=== PATIENT | female | born 1940 | race Two or more races ===

== ENCOUNTER 2024-02-23 13:41 | Emergency (ER) | payer MEDICARE, MEDICAID ==
[~2024-02-23] VITALS: Ht 152.4 cm; Wt 56.1 kg
[2024-02-23 14:40] LABS: Basophils # (auto) 0 10 ^3/uL (0-0.2); Basophils % (auto) 0.8 % (0.0-2.0); Eosinophils # (auto) 0.1 10 ^3/uL (0-0.8); Hematocrit 41.9 % (36.0-46.0); Hemoglobin 13.9 g/dL (12.2-16.2); Lymphocytes # (auto) 1.2 10 ^3/uL (0.4-5.4); Mean Corpuscular Hemoglobin 27.1 pg (28.0-32.0); Mean Corpuscular Hgb Conc. 33.1 g/dL (32.0-36.0); Mean Corpuscular Volume 81.7 fL (80.0-100.0); Monocytes # (auto) 0.4 10 ^3/uL (0-1.3); Monocytes % (auto) 7.5 % (0.0-12.0); Neutrophils # (auto) 3.9 10 ^3/uL (1.6-8.6); Neutrophils % (auto) 67.7 % (37.0-80.0); Red Blood Cells 5.12 10^6/uL (4.0-5.20); White Blood Cell 5.7 10^3/uL (4.4-10.8)
[2024-02-23 15:05] LABS: Alanine Aminotransferase 18 U/L (7-40); Alkaline Phosphatase 75 U/L (46-116); Anion Gap 8 (5-15); Aspartate Aminotransferase 14 U/L (13-40); BUN/Creatinine Ratio 17.4 (10.0-20.0); Blood Urea Nitrogen 12 mg/dL (9-23); Carbon Dioxide 27 mmol/L (20-30); Chloride 104 mmol/L (98-107); Glucose 188 mg/dL (74-106); Potassium 4.4 mmol/L (3.5-5.1); Sodium 139 mmol/L (136-145)
[2024-02-23 15:06] LABS: Albumin 4.6 g/dL (3.2-4.8); Bilirubin, Total 0.6 mg/dL (0.2-1.0); Total Protein 7.5 g/dL (5.7-8.2)
[2024-02-23 15:17] LABS: Urine Bacteria None Seen /hpf (None Seen)
[2024-02-23 15:47] LABS: Urine Blood Negative /uL (Negative); Urine Clarity Clear (Clear); Urine Color Light-Yellow (Yellow); Urine Protein, UAD Negative (Negative); Urine Specific Gravity 1.029 (1.001-1.035); Urine Urobilinogen Normal (Negative); Urine WBC 7 /hpf (0 - 5); Urine pH 5.5 (5.0-9.0)
[2024-02-23] MEDS: ACETAMINOPHEN 325 MG TAB PO ONE (16:39)
[2024-02-23 17:19] VITALS: BP 154/63; PULSE 78; RESP 20; TEMP 98.1; O2SAT 98
== END 2024-02-23 17:21 | disposition home or self-care (01) ==
LOC: ER 13:41
DX: G44.209 Tension-type headache, unspecified, not intractable (principal); F03.90 Unspecified dementia, unspecified severity, without behavioral disturbance, psychotic disturbance, mood disturbance, and anxiety; Z79.899 Other long term (current) drug therapy
CPT/HCPCS: 36415; 70450; 80053; 81001; 82962; 84484; 85025

== ENCOUNTER 2024-03-20 13:00 | Emergency (ER) | payer MEDICARE, MEDICAID ==
[~2024-03-20] VITALS: Ht 160 cm; Wt 53.5 kg
[2024-03-20 14:47] VITALS: BP 175/66; PULSE 86; RESP 16; TEMP 98.2; O2SAT 97
[2024-03-20] MEDS ORDERED: ERY05OO OP (14:58)
[2024-03-20] MEDS ORDERED: AUG875T PO (14:58)
== END 2024-03-20 14:58 | disposition home or self-care (01) ==
LOC: ER 13:00
DX: H10.31 Unspecified acute conjunctivitis, right eye (principal); F03.90 Unspecified dementia, unspecified severity, without behavioral disturbance, psychotic disturbance, mood disturbance, and anxiety; Z98.890 Other specified postprocedural states

== ENCOUNTER 2024-07-05 22:35 | Inpatient (IN) | payer MEDICARE, MEDICAID ==
[~2024-07-05] VITALS: Ht 162.6 cm; Wt 53.6 kg
[~2024-07-05 22:35] MED LIST: AUG875T PO; ERY05OO OP
--- NOTE | 2024-07-05 23:08 | ED.PDOC ---
History of Present Illness HPI Comments 84-year-old female came to ER due to syncope. Patient has history of hypertension, diabetes and dementia. Patient accompanied by daughter gives history of the patient. States for the past few days patient has been having flu-like symptoms, with cough and congestion, and generalized weakness. Patient went to the bathroom earlier, and had a syncopal attack. They assume that blood sugar must be low, patient was given something to drink. Patient brought to the emergency room further evaluation and management. Patient was mildly hypotensive on arrival. Chief Complaint: Syncope Time Seen by MD: 23:08 Primary Care Provider: Carlos Enrique Reviewed Notes: Nurses Notes Allergies: Coded Allergies: NO KNOWN ALLERGIES (Unverified , 03/20/24) Home Meds Active Scripts Erythromycin (Erythromycin) 5 Mg/Gm Oin, 1 APPLIC OP TID for 10 Days, #5 GRAMS 0 Refills Prov:JESSY FAJARDO NP 03/20/24 Amoxicillin & Pot Clavulanate (AUGMENTIN TABLET) 875 Mg Tb, 875 MG PO BID for 7 Days, #14 TAB 0 Refills Prov:JESSY FAJARDO CLAIM MANAGER 03/20/24 Information Source: Relative Mode of Arrival: Wheelchair Severity: Moderate Timing: Hours Duration: Intermittent Prehospital treatment: None Past Medical History PAST MEDICAL HISTORY: Dementia, DM, HTN Surgical History: Denies all surgeries [employer] History: Denies all [employer] Hx Family History Family History: Reviewed,noncontributory to illness Social History Smoker: Non-Smoker Alcohol: Denies ETOH Use Drugs: Denies Drug Use Lives In: Home Constitutional: reports: fatigue, malaise, weakness; denies: chills, diaphoresis, fever, sweats, others EENTM: denies: blurred vision, double vision, ear bleeding, ear discharge, ear drainage, ear pain, ear ringing, eye pain, eye redness, hearing loss, mouth pain, mouth swelling, nasal discharge, nose bleeding, nose congestion, nose pain, photophobia, tearing, throat pain, throat swelling, voice changes, others Respiratory: denies: cough, hemoptysis, orthopnea, SOB at rest, shortness of breath, SOB with excertion, stridor, wheezing, others Cardiovascular: denies: chest pain, dizzy spells, diaphoresis, Dyspnea on exertion, edema, irregular heart beat, left arm pain, lightheadedness, palpitations, PND, syncope, others Gastrointestinal: denies: abdomen distended, abdominal pain, blood streaked bowels, constipated, diarrhea, dysphagia, difficulty swallowing, hematemesis, melena, nausea, poor appetite, poor fluid intake, rectal bleeding, rectal pain, vomiting, others Genitourinary: denies: abnormal vagina bleeding, burning, dyspareunia, dysuria, flank pain, frequency, hematuria, incontinence, pain, , vagina discharge, urgency, others Neurological: reports: fainting; denies: dizziness, headache, left sided numbness, left sided weakness, numbness, paresthesia, pre-existing deficit, right sided numbness, right sided weakness, seizure, speech problems, tingling, tremors, weakness, others Musculoskeletal: denies: back pain, gout, joint pain, joint swelling, muscle pain, muscle stiffness, neck pain, others Integumetry: reports: change in color; denies: bruises, change in hair/nails, dryness, laceration, lesions, lumps, rash, wounds, others Allergic/Immunocompromised: denies: Difficulty Healing, Frequent Infections, Hives, Itching, others Hematologic/Lymphatic: denies: anemia, blood clots, easy bleeding, easy bruising, swollen glands, others Endocrine: denies: excessive hunger, excessive sweating, excessive thirst, excessive urination, flushing, intolerance to cold, intolerance to heat, unexplained weight gain, unexplained weight loss, others Psychiatric: denies: anxiety, bipolar disorder, depression, hopeless, panic disorder, schizophrenia, sleepless, suicidal, others Unable to Obtain due to: Dementia Physical Exam General Appearance: Moderate Distress (Patient appears to be in moderate distress and poor overall health at time of evaluation. Patient looked pale.), Normal HEENT: Normal ENT Inspection, Pharynx Normal, TMs Normal Neck: Full Range of Motion, Non-Tender, Normal, Normal Inspection Respiratory: Chest Non-Tender, Lungs Clear, No Accessory Muscle Use, No Respiratory Distress, Normal Breath Sounds, Other (Unremarkable auscultation bilateral lung blandon.) Cardiovascular: No Edema, No JVD, No Murmur, No Gallop, Normal Peripheral Pulses, Regular Rate/Rhythm, Other (Unremarkable cardiac evaluation.) Breast Exam: Deferred Gastrointestinal: Non Tender, No Pulsatile Mass, Normal Bowel Sounds, Soft Genitalia: Deferred Pelvic: Deferred Rectal: Deferred Extremities: No calf tenderness, Normal capillary refill, Non-tender, No pedal edema Musculoskeletal : Apperance: Normal Neurologic: Disoriented, No Motor Deficits, No Sensory Deficits Cerebellar Function: Normal Reflexes: NOT DONE Skin: Dry, Normal Color, Warm Lymphatic: No Adenopathy Was a procedure done? Was a procedure done?: No Differential Dx Considerations may include: Anemia, electrolyte imbalance, dehydration, viral syndrome, weakness, syncope, hypoglycemia, hyperglycemia, metabolic encephalopathy X-Ray, Labs, Meds, VS Vital Signs Date Time Temp Pulse Resp B/P (MAP) Pulse Ox O2 Delivery O2 Flow Rate FiO2 07/05/24 23:14 72 07/05/24 22:55 98.9 77 16 110/50 (70) 9 Lab Test 07/06/24 00:16 07/05/24 23:10 07/05/24 22:55 Range/Units Troponin I High Sensitivity 7 7 </=34 ng/L White Blood Count 4.1 L 4.4-10.8 10^3/uL Red Blood Count 4.81 4.0-5.20 10^6/uL Hemoglobin 12.5 12.2-16.2 g/dL Hematocrit 37.6 36.0-46.0 % Mean Corpuscular Volume 78.2 L 80.0-100.0 fL Mean Corpuscular Hemoglobin 26.0 L 28.0-32.0 pg Mean Corpuscular Hemoglobin Concent 33.2 32.0-36.0 g/dL Red Cell Distribution Width 16.6 H 11.8-14.3 % Platelet Count 185 140-450 10^3/uL Mean Platelet Volume 7.9 6.9-10.8 fL Neutrophils (%) (Auto) 84.6 H 37.0-80.0 % Lymphocytes (%) (Auto) 8.0 L 10.0-50.0 % Monocytes (%) (Auto) 7.0 0.0-12.0 % Eosinophils (%) (Auto) 0.1 0.0-7.0 % Basophils (%) (Auto) 0.3 0.0-2.0 % Neutrophils # (Auto) 3.5 1.6-8.6 10 ^3/uL Lymphocytes # (Auto) 0.3 L 0.4-5.4 10 ^3/uL Monocytes # (Auto) 0.3 0-1.3 10 ^3/uL Eosinophils # (Auto) 0 0-0.8 10 ^3/uL Basophils # (Auto) 0 0-0.2 10 ^3/uL Nucleated Red Blood Cells 0.1 % Sodium Level 129 L 136-145 mmol/L Potassium Level 3.3 L 3.5-5.1 mmol/L Chloride Level 92 L 98-107 mmol/L Carbon Dioxide Level 26 20-31 mmol/L Anion Gap 11 5-15 Blood Urea Nitrogen 24 H 9-23 mg/dL Creatinine 1.07 H 0.550-1.02 mg/dL Glomerular Filtration Rate Calc 52 >90 mL/min BUN/Creatinine Ratio 22.4 H 10.0-20.0 Serum Glucose 376 H 74-106 mg/dL Lactic Acid Level 1.7 0.4-2.0 mmol/L Calcium Level 9.3 8.7-10.4 mg/dL Total Bilirubin 0.4 0.2-1.0 mg/dL Aspartate Amino Transferase (AST) 53 H 13-40 U/L Alanine Aminotransferase (ALT) 48 H 7-40 U/L Alkaline Phosphatase 70 46-116 U/L B-Type Natriuretic Peptide 17.83 0-100 pg/mL Total Protein 6.8 5.7-8.2 g/dL Albumin 4.1 3.2-4.8 g/dL Lipase 77 H 12-53 U/L POC Glucose 377 H 70-106 mg/dl X-Ray, Labs, Meds, VS Comment All studies performed in the ED were evaluated by me personally. Urine was pending at time of this note. Laboratories revealed a hypokalemic state, hyponatremia, hyperglycemic, transaminitis and elevated lipase. CT of the head revealed a low volume observation without an acute mass or intracranial process. EKG revealed a sinus rhythm with a rate of 72. 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 Patient received fluid and insulin and will be admitted for over management of her poorly controlled diabetes as well as a neurologic evaluation to assess her encephalopathy event. Time of 1ST Reevaluation: 02:04 Reevaluation 1ST: Improved Consultation: PCP Patient Education/Counseling: Diagnosis, Treatment Family Education/Counseling: Diagnosis, Treatment Departure 1 Departure Time of Disposition: 02:04 Impression: Primary Impression: Metabolic encephalopathy Additional Impressions: Hyperglycemia Hyponatremia Hypokalemia Transaminitis Elevated lipase Disposition: ADMITTED INPATIENT Condition: Fair Discharged With: Self, Relative Critical Care Note Critical Care Time?: No Stability Stability form required: No Heart Score Heart Score: Heart Score Response (Comments) Value History N/A 0 EKG N/A 0 Age N/A 0 Risk Factors N/A 0 Troponin N/A 0 Total 0 I personally scribed for MARCIA OLIVA PAC ([email or web address]) on 07/05/24 at 23:08. Electronically submitted by Tera Montgomery ([email or web address]). MARCIA OLIVA PAC Jul 05, 2024 23:08
[2024-07-05 23:25] LABS: Basophils # (auto) 0 10 ^3/uL (0-0.2); Eosinophils # (auto) 0 10 ^3/uL (0-0.8); Lymphocytes # (auto) 0.3 10 ^3/uL (0.4-5.4); Monocytes # (auto) 0.3 10 ^3/uL (0-1.3); Platelet Count (auto) 185 10^3/uL (140-450)
[2024-07-05 23:28] LABS: Basophils % (auto) 0.3 % (0.0-2.0); Eosinophils % (auto) 0.1 % (0.0-7.0); Hematocrit 37.6 % (36.0-46.0); Hemoglobin 12.5 g/dL (12.2-16.2); Mean Corpuscular Hgb Conc. 33.2 g/dL (32.0-36.0); Mean Corpuscular Volume 78.2 fL (80.0-100.0); Neutrophils # (auto) 3.5 10 ^3/uL (1.6-8.6); Neutrophils % (auto) 84.6 % (37.0-80.0); Nucleated Red Blood Cells % 0.1 %; Red Blood Cells 4.81 10^6/uL (4.0-5.20); Red Cell Distribution Width 16.6 % (11.8-14.3); White Blood Cell 4.1 10^3/uL (4.4-10.8)
[2024-07-05 23:40] LABS: Alkaline Phosphatase 70 U/L (46-116); Anion Gap 11 (5-15); BUN/Creatinine Ratio 22.4 (10.0-20.0); Calcium 9.3 mg/dL (8.7-10.4); Carbon Dioxide 26 mmol/L (20-31)
[2024-07-05 23:41] LABS: Albumin 4.1 g/dL (3.2-4.8); Bilirubin, Total 0.4 mg/dL (0.2-1.0); Total Protein 6.8 g/dL (5.7-8.2)
[2024-07-05 23:59] LABS: Alanine Aminotransferase 48 U/L (7-40); Aspartate Aminotransferase 53 U/L (13-40); Blood Urea Nitrogen 24 mg/dL (9-23); Chloride 92 mmol/L (98-107); Glucose 376 mg/dL (74-106); Lipase 77 U/L (12-53); Potassium 3.3 mmol/L (3.5-5.1); Sodium 129 mmol/L (136-145)
--- NOTE | 2024-07-06 00:57 | DVH ---
CLINICAL HISTORY: ALOC TECHNIQUE: Helical imaging carried out from skull base to vertex without intravenous contrast. This e xam was performed according to our departmental dose optimization program. Up-to-date CT equipment an d radiation dose reduction techniques are utilized as appropriate. COMPARISON: CT HEAD WITHOUT CONTRAST on DOS: 02/23/24 FINDINGS: Generalized cerebral volume loss with concordant prominence of the subarachnoid spaces and ventricles . There is minor patchy low-attenuation in the cerebral white matter consistent with nonspecific whit e matter disease. There is no midline shift or mass effect. The gonzalez white matter interfaces are maintained. The basal cisterns are patent. There is no evidence of acute intracranial hemorrhage or extra-axial fluid ila ection. Mastoid air cells are well-aerated. There are fluid levels in the bilateral maxillary and sp henoid sinuses and mild paranasal sinus mucosal thickening. IMPRESSION: 1. No acute intracranial abnormality. 2. Generalized cerebral volume loss and minor chronic microvascular ischemic change 3. Fluid levels in the bilateral maxillary and sphenoid sinuses which could reflect sinusitis in the appropriate clinical setting. Additional mild paranasal sinus mucosal thickening likely inflammatory .
--- NOTE | 2024-07-06 00:57 | DVH ---
EXAM: XY CHEST PORTABLE CLINICAL HISTORY: Shortness a breath TECHNIQUE: Single AP view of the chest WID: COMPARISON: None FINDINGS: Lines and tubes: None Chest: The heart size and pulmonary vasculature is within normal limits. Calcified plaque projects over the aortic arch. No pleural effusion, pneumothorax, or consolidation. The osseous structures are grossly intact. IMPRESSION: No acute cardiopulmonary abnormality.
[2024-07-06] MEDS: INSULIN LISPRO (HUMAN) 100 UNITS/ML ML SC ONE (02:57)
[2024-07-06] MEDS: SODIUM CHLORIDE 0.9% 1,000 ML IV ONE (02:58)
--- NOTE | 2024-07-06 03:31 | DVHHPRES ---
History of Present Illness Resident Creating Document: DANIELLE YUEN RESIDENT History of Present Illness This is a 84 years old female with past medical history of hypertension, hyperlipidemia, type 2 diabetes mellitus, dementia presented to the ED with her daughter for an evaluation of syncopal episode happened earlier today. According to the daughter and the patient had an syncopal episode in the morning today after coming back from washroom. The daughter also mentioned the patient has flu-like symptoms, dry cough, red and itchiness in bilateral eyes and smelly urine for last 1 day prior to this admission. Patient was diagnosed with dementia 3 years ago and she was not complaining of any symptoms and not able to answer any questions. The daughter denies chest pain, shortness of breath, fever or any change in bowel and bladder movement. PCP: Dr. Mendoza Past Medical History Hypertension, hyperlipidemia, type 2 diabetes mellitus, dementia Past Surgical History Surgery for kidney stone Family History None Past Social History Lives with daughter Nonsmoker, nonalcoholic and never tried any drugs. Review of Systems Review of Systems Review of system could not be assessed as patient has advanced dementia Allergies: Coded Allergies: NO KNOWN ALLERGIES (Unverified , 03/20/24) Exam Vital Signs Vital Signs Date Time Temp Pulse Resp B/P (MAP) Pulse Ox O2 Delivery O2 Flow Rate FiO2 07/06/24 03:18 98.9 72 14 113/50 (71) 95 98.9 Exam Physical examination: General Appearance: Alert, Oriented X3, Cooperative, No acute distress HEENT: Atraumatic, PERRLA, EOMI, Mucous membrane moist/pink Respiratory: Clear to auscultation, Normal air movement Cardiovascular: Regular rate, Normal S1, Normal S2, No murmurs, no chest wall tenderness Abdominal: Normal bowel sounds, Soft, No tenderness, No hepatospenomegaly, No masses Extremities: No clubbing, No cyanosis, No edema, Normal pulses, No tenderness/swelling Skin: No rashes, No breakdown, No significant lesion Neuro: Normal speech, Strength at 5/5 X4 ext, Normal tone, Sensation intact, grossly intact cranial nerves. Psych/Mental Status: Mental status NL, Mood NL, advanced dementia Labs/Xrays Labs Test 07/06/24 00:16 07/05/24 23:10 07/05/24 22:55 Range/Units Troponin I High Sensitivity 7 </=34 ng/L White Blood Count 4.1 L 4.4-10.8 10^3/uL Red Blood Count 4.81 4.0-5.20 10^6/uL Hemoglobin 12.5 12.2-16.2 g/dL Hematocrit 37.6 36.0-46.0 % Mean Corpuscular Volume 78.2 L 80.0-100.0 fL Mean Corpuscular Hemoglobin 26.0 L 28.0-32.0 pg Mean Corpuscular Hemoglobin Concent 33.2 32.0-36.0 g/dL Red Cell Distribution Width 16.6 H 11.8-14.3 % Platelet Count 185 140-450 10^3/uL Mean Platelet Volume 7.9 6.9-10.8 fL Neutrophils (%) (Auto) 84.6 H 37.0-80.0 % Lymphocytes (%) (Auto) 8.0 L 10.0-50.0 % Monocytes (%) (Auto) 7.0 0.0-12.0 % Eosinophils (%) (Auto) 0.1 0.0-7.0 % Basophils (%) (Auto) 0.3 0.0-2.0 % Neutrophils # (Auto) 3.5 1.6-8.6 10 ^3/uL Lymphocytes # (Auto) 0.3 L 0.4-5.4 10 ^3/uL Monocytes # (Auto) 0.3 0-1.3 10 ^3/uL Eosinophils # (Auto) 0 0-0.8 10 ^3/uL Basophils # (Auto) 0 0-0.2 10 ^3/uL Nucleated Red Blood Cells 0.1 % Sodium Level 129 L 136-145 mmol/L Potassium Level 3.3 L 3.5-5.1 mmol/L Chloride Level 92 L 98-107 mmol/L Carbon Dioxide Level 26 20-31 mmol/L Anion Gap 11 5-15 Blood Urea Nitrogen 24 H 9-23 mg/dL Creatinine 1.07 H 0.550-1.02 mg/dL Glomerular Filtration Rate Calc 52 >90 mL/min BUN/Creatinine Ratio 22.4 H 10.0-20.0 Serum Glucose 376 H 74-106 mg/dL Lactic Acid Level 1.7 0.4-2.0 mmol/L Calcium Level 9.3 8.7-10.4 mg/dL Total Bilirubin 0.4 0.2-1.0 mg/dL Aspartate Amino Transferase (AST) 53 H 13-40 U/L Alanine Aminotransferase (ALT) 48 H 7-40 U/L Alkaline Phosphatase 70 46-116 U/L B-Type Natriuretic Peptide 17.83 0-100 pg/mL Total Protein 6.8 5.7-8.2 g/dL Albumin 4.1 3.2-4.8 g/dL Lipase 77 H 12-53 U/L POC Glucose 377 H 70-106 mg/dl Assessment/Plan Assessment/Plan Assessment and plan: # Near syncopal episode likely due to autonomic instability - CT head without contrast revealed no acute intracranial abnormality - Ordered orthostatic vital - Ordered echo, carotid Doppler, TSH, B12, folic acid - IV normal saline at 60 mL/hour # Hyperglycemia with normal anion gap, ruled out DKA # Pseudohyponatremia due to hyperglycemia - On admission blood sugar was 376 and sodium was 129 - Corrected sodium is 133 - Patient was given 15 units insulin lispro - Started Lantus 10 units at q.a.m. and moderate sliding scale of insulin # Hypokalemia - Replenished # Elevated lipase with transaminitis, rule out pancreatitis - Ordered U/S of the whole abdomen, coagulation studies - IV normal saline at 60 mL/hour # Flu like symptoms, sinusitis - Ordered COVID, flu - CT head without contrast revealed in the bilateral maxillary and sphenoidal sinus - Amoxicillin-clavulanate 875 mg PO TID # PUD prophylaxis - 40 mg p.o. daily # DVT prophylaxis - Lovenox 40 mg sc daily Goal of care could not be able to discussed with the patient as patient has dementia Plan discussed with Dr. Alexander Plan discussed with: Patient, Other Date of Service: Jul 06, 2024 Billing Provider: ELDON ALEXANDER MD Common Visit Codes: 41007-YRBIIMX INP/OBS CARE (HIGH) Secondary Visit Codes: 53318-[id number] CARE PLAN 30 MINUTES DANIELLE YUEN RESIDENT Jul 06, 2024 03:31 ELDON ALEXANDER MD Jul 06, 2024 10:45
[2024-07-06] MEDS ORDERED: DEXTROSE (50%) 50ML SYRG IV PRN (03:45)
[2024-07-06] MEDS: SODIUM CHLORIDE 0.9% 1,000 ML IV SCH (03:45)
[2024-07-06] MEDS: POTASSIUM EFFERVESENT TAB 25 MEQ PO ONE (05:16)
[2024-07-06 06:09] LABS: Anion Gap 11 (5-15); Carbon Dioxide 29 mmol/L (20-31)
[2024-07-06 06:10] LABS: Calcium 9.6 mg/dL (8.7-10.4)
[2024-07-06 06:15] LABS: BUN/Creatinine Ratio 24.1 (10.0-20.0); Blood Urea Nitrogen 27 mg/dL (9-23); Chloride 93 mmol/L (98-107); Glucose 210 mg/dL (74-106); Potassium 2.9 mmol/L (3.5-5.1); Sodium 133 mmol/L (136-145)
[2024-07-06] MEDS: AMOXICILLIN/CLAVUL 875 MG TAB PO SCH (06:22)
[2024-07-06] MEDS: PANTOPRAZOLE 40 MG TAB PO SCH (06:22)
[2024-07-06] MEDS: INSULIN LANTUS (GLARGINE) 1 /0.01ml (100units/ml) SC SCH (06:38)
[2024-07-06] MEDS: InsuLIN REG 1unit/0.01ml Soln (100units/ml) SC SCH (06:39)
[2024-07-06 06:50] LABS: INR 0.96 (0.9-1.15); Partial Thromboplastin Time 29.9 SEC (24.5-34.5); Prothrombin Time 10.2 sec (9.3-11.8)
--- NOTE | 2024-07-06 06:56 | ECG ---
[facility] Test Date: 2024-07-05 Test Time: 23:14:58 Pat Name: CRISTAL REVELES Department: ED Room: [address] [place] [address] Gender: F [employer] Business Analyst: ARMEN : 1940 Requested By: MARCIA OLIVA Order Number: [id number] Reading MD: Kojo Joyner Measurements Intervals Trinity Rate: 72 P: 18 NV: 137 QRS: 38 QRSD: 91 T: 37 QT: 393 QTc: 431 Interpretive Statements Sinus rhythm Anteroseptal infarct, old Electronically Signed On 07-06-2024 14:49:39 PST by Kojo Joyner Please click the below link to view image of tracing.
[2024-07-06] MEDS: ACCU-CHEK COMFORT CURVE STRIP VI SCH (07:00)
[2024-07-06 07:26] VITALS: BP 113/51; PULSE 70; RESP 16; TEMP 99.3; O2SAT 95
--- NOTE | 2024-07-06 08:01 | DVH ---
INDICATION: Rule out pancreatitis TECHNIQUE: Multiple real-time sonographic images of the abdomen were obtained. COMPARISON: None FINDINGS: The liver is increased in echogenicity. The liver measures 15.6 cm. No intrahepatic biliar y ductal dilatation is noted. The gallbladder is not visualized. Common bile duct not visualized. The right kidney measures 9.9 cm. No hydronephrosis. The pancreas is not well visualized due to obscuration from bowel gas. The visualized portions of the IVC and aorta are grossly unremarkable. IMPRESSION: 1. Hepatic steatosis. 2. Gallbladder not visualized and may be surgically absent.
[2024-07-06 08:12] LABS: Urine Bacteria FEW /hpf (None Seen); Urine Blood Negative /uL (Negative); Urine Clarity Clear (Clear); Urine Color Light-Yellow (Yellow); Urine Protein, UAD Negative (Negative); Urine Specific Gravity 1.027 (1.001-1.035); Urine Squamous Epithelial Cell FEW /hpf (<5); Urine Urobilinogen Normal (Negative); Urine WBC 1 /hpf (0 - 5)
[2024-07-06 09:21] LABS: COVID19 ANTIGEN SOFIA FIA NEGATIVE (NEGATIVE)
[2024-07-06 09:22] LABS: Rapid Influenza B Negative (Negative)
[2024-07-06 09:40] LABS: Rapid Influenza A Positive (Negative)
[2024-07-06] MEDS ORDERED: ASPirin-EC 81 mg tab PO SCH (10:00)
[2024-07-06] MEDS ORDERED: MEMANTINE HCL 5 MG TAB PO SCH (10:00)
[2024-07-06] MEDS ORDERED: ENOXAPARIN SOD 40 MG/0.4 ML SYRINGE SC SCH (10:00)
[2024-07-06] MEDS ORDERED: POTASSIUM CHL 20 Meq TABLET PO ONE (14:00)
--- NOTE | 2024-07-06 14:07 | DVHPNRES ---
Progress Note Date Seen: Jul 06, 2024 Objective vital signs Vital Sign Date Time Temp Pulse Resp B/P (MAP) Pulse Ox O2 Delivery O2 Flow Rate FiO2 07/06/24 07:26 99.3 70 16 113/51 (71) 95 99.3 medications Current Medications Medications Dose Ordered Sig/Yari Route Start Time Stop Time Status Last Admin Dose Admin Sodium Chloride 1,000 ml @ 60 mls/hr [id number] IV 07/06/24 03:45 Amoxicillin/ Clavulanate Potassium 875 mg TID PO 07/06/24 06:00 07/06/24 06:22 875 MG Insulin Glargine 10 units QAM SC 07/06/24 07:00 07/06/24 06:38 10 UNITS Diagnostic Test (Pha) 1 strip ACHS 07/06/24 07:00 07/06/24 07:00 1 STRIP Insulin Human Regular HS SC 07/06/24 22:00 Insulin Human Regular AC SC 07/06/24 07:00 07/06/24 06:39 3 UNITS Dextrose 50 ml UD PRN IV 07/06/24 03:45 Aspirin 81 mg DAILY PO 07/06/24 10:00 Atorvastatin Calcium 20 mg HS PO 07/06/24 22:00 Memantine 5 mg DAILY PO 07/06/24 10:00 Enoxaparin Sodium 40 mg DAILY SC 07/06/24 10:00 Pantoprazole Sodium 40 mg DAILY@0600 PO 07/06/24 06:00 07/06/24 06:22 40 MG laboratory and microbiology Laboratory Tests 07/06/24 05:20 07/05/24 23:10 Test 07/06/24 05:20 Range/Units Serum Glucose 210 H 74-106 mg/dL Labs and/or images reviewed: Labs reviewed by me, Image(s) reviewed by me Problem List/Assessment/Plan Problem List/Assessment/Plan This is a 84 years old female with past medical history of hypertension, hyperlipidemia, type 2 diabetes mellitus, dementia presented to the ED with her daughter for an evaluation of syncopal episode happened earlier today. According to the daughter and the patient had an syncopal episode in the morning today after coming back from washroom. The daughter also mentioned the patient has flu-like symptoms, dry cough, red and itchiness in bilateral eyes and smelly urine for last 1 day prior to this admission. Patient was diagnosed with dementia 3 years ago and she was not complaining of any symptoms and not able to answer any questions. The daughter denies chest pain, shortness of breath, fever or any change in bowel and bladder movement. PCP: Dr. Mendoza Past Medical History Hypertension, hyperlipidemia, type 2 diabetes mellitus, dementia Past Surgical History Surgery for kidney stone Family History None Past Social History Lives with daughter Nonsmoker, nonalcoholic and never tried any drugs. Assessment and plan: # Near syncopal episode likely due to autonomic instability - CT head without contrast revealed no acute intracranial abnormality - Ordered orthostatic vital - Ordered echo, carotid Doppler, TSH, B12, folic acid - IV normal saline at 60 mL/hour # Hyperglycemia with normal anion gap, ruled out DKA # Pseudohyponatremia due to hyperglycemia - On admission blood sugar was 376 and sodium was 129 - Corrected sodium is 133 - Patient was given 15 units insulin lispro - Started Lantus 10 units at q.a.m. and moderate sliding scale of insulin # Hypokalemia - Replenished # Elevated lipase with transaminitis, rule out pancreatitis - Ordered U/S of the whole abdomen, coagulation studies - IV normal saline at 60 mL/hour # Flu like symptoms, sinusitis - Ordered COVID, flu - CT head without contrast revealed in the bilateral maxillary and sphenoidal sinus - Amoxicillin-clavulanate 875 mg PO TID # PUD prophylaxis - 40 mg p.o. daily # DVT prophylaxis - Lovenox 40 mg sc daily Goal of care could not be able to discussed with the patient as patient has dementia My Orders My Orders Orders - NADIR BURR Procedure Category Date Status Time Potassium Er Tablet PHA 07/06/24 Logged (Klor-Con Tablet) 14:00 NADIR BURR Jul 06, 2024 14:07
[2024-07-06] MEDS ORDERED: OSELTAMIVIR 75 MG CAP PO ONE (15:15)
--- NOTE | 2024-07-06 19:10 | DVHDSRES ---
Discharge Summary Date of Admission Resident Creating Document: DANIELLE YUEN RESIDENT Jul 06, 2024 at 03:14 Date of Discharge: Jul 06, 2024 Admitting Diagnosis Weakness, shortness of breath and bilateral lower limb weakness Labs/Diagnostic Data: Laboratory Results Test 07/06/24 06:29 07/06/24 06:15 07/06/24 05:20 07/06/24 00:16 POC Glucose 173 mg/dl (70-106) Influenza Type A Antigen Positive (Negative) Influenza Type B Antigen Negative (Negative) SARS-CoV-2 Antigen (Rapid) Negative (NEGATIVE) Prothrombin Time 10.2 sec (9.3-11.8) Prothrombin Time INR 0.96 (0.9-1.15) Activated Partial Thromboplast Time 29.9 SEC (24.5-34.5) Sodium Level 133 mmol/L (136-145) Potassium Level 2.9 mmol/L (3.5-5.1) Chloride Level 93 mmol/L (98-107) Carbon Dioxide Level 29 mmol/L (20-31) Anion Gap 11 (5-15) Blood Urea Nitrogen 27 mg/dL (9-23) Creatinine 1.12 mg/dL (0.550-1.02) Glomerular Filtration Rate Calc 49 mL/min (>90) BUN/Creatinine Ratio 24.1 (10.0-20.0) Serum Glucose 210 mg/dL (74-106) Calcium Level 9.6 mg/dL (8.7-10.4) Thyroid Stimulating Hormone (TSH) 1.61 uIU/mL (0.55-4.78) Troponin I High Sensitivity 7 ng/L (</=34) Test 07/05/24 23:10 07/05/24 23:03 White Blood Count 4.1 10^3/uL (4.4-10.8) Red Blood Count 4.81 10^6/uL (4.0-5.20) Hemoglobin 12.5 g/dL (12.2-16.2) Hematocrit 37.6 % (36.0-46.0) Mean Corpuscular Volume 78.2 fL (80.0-100.0) Mean Corpuscular Hemoglobin 26.0 pg (28.0-32.0) Mean Corpuscular Hemoglobin Concent 33.2 g/dL (32.0-36.0) Red Cell Distribution Width 16.6 % (11.8-14.3) Platelet Count 185 10^3/uL (140-450) Mean Platelet Volume 7.9 fL (6.9-10.8) Neutrophils (%) (Auto) 84.6 % (37.0-80.0) Lymphocytes (%) (Auto) 8.0 % (10.0-50.0) Monocytes (%) (Auto) 7.0 % (0.0-12.0) Eosinophils (%) (Auto) 0.1 % (0.0-7.0) Basophils (%) (Auto) 0.3 % (0.0-2.0) Neutrophils # (Auto) 3.5 10 ^3/uL (1.6-8.6) Lymphocytes # (Auto) 0.3 10 ^3/uL (0.4-5.4) Monocytes # (Auto) 0.3 10 ^3/uL (0-1.3) Eosinophils # (Auto) 0 10 ^3/uL (0-0.8) Basophils # (Auto) 0 10 ^3/uL (0-0.2) Nucleated Red Blood Cells 0.1 % Lactic Acid Level 1.7 mmol/L (0.4-2.0) Total Bilirubin 0.4 mg/dL (0.2-1.0) Aspartate Amino Transferase (AST) 53 U/L (13-40) Alanine Aminotransferase (ALT) 48 U/L (7-40) Alkaline Phosphatase 70 U/L (46-116) B-Type Natriuretic Peptide 17.83 pg/mL (0-100) Total Protein 6.8 g/dL (5.7-8.2) Albumin 4.1 g/dL (3.2-4.8) Lipase 77 U/L (12-53) Urine Color Light-yellow (Yellow) Urine Clarity Clear (Clear) Urine pH 5.0 (5.0-9.0) Urine Specific [place] 1.027 (1.001-1.035) Urine Protein Negative (Negative) Urine Ketones 1+ (Negative) Urine Blood Negative /uL (Negative) Urine Nitrite Negative (Negative) Urine Bilirubin Negative (Negative) Urine Urobilinogen Normal mg/dL (Negative) Urine Leukocyte Esterase Negative /uL (Negative) Urine RBC 1 /hpf (0 - 4) Urine WBC 1 /hpf (0 - 5) Urine Squamous Epithelial Cells Few /hpf (<5) Urine Bacteria Few /hpf (None Seen) Urine Glucose 4+ mg/dL (Normal) Other Laboratory Tests 07/06/24 05:20 07/05/24 23:10 Brief Hx & Hospital Course: Hospitalization summary/ Assessment: An 84-year-old female with a history of hypertension, hyperlipidemia, type 2 diabetes mellitus, and dementia presented to the ED with her daughter after a syncopal episode earlier today. The daughter reported flu-like symptoms, dry cough, red and itchy eyes, and smelly urine for the past day. The patient, diagnosed with dementia three years ago, was unable to answer questions or complain of symptoms. The daughter denies chest pain, shortness of breath, fever, or changes in bowel and bladder movements. The patient lives with her daughter, is a nonsmoker, nonalcoholic, and has never used drugs. in-hospital patient was found to have autonomic instability, intravascular volume depletion, hypokalemia, transaminitis, influenza type a but overall hemodynamically stable. Overnight patient remained room air, vitals stable, afebrile without any acute distress. Before patient can be evaluated and physical examination can be done patient left AMA With daughter. Medical conditions treated in hospital: # Metabolic encephalopathy, resolved. # Near syncopal episode likely due to autonomic imbalance: CT head negative, ulcerative vital echo, carotid Doppler TSH B12 folic acid pending. Workup pending, continue IV normal saline 60 minimal # Hyperglycemia with normal anion gap, ruled out DKA : Corrected with subcutaneous insulin # Pseudohyponatremia due to hyperglycemia: Improved # Hypokalemia, persistent with 2.9: Oral replenishment and ordered # Elevated lipase with transaminitis # possibility of pancreatitis yet not ruled out # influenza type A positive: Patient started on Tamiflu 75 mg b.i.d. # Known type 2 diabetes mellitus # known dementia on donepezil 10 mg at bedtime, memantine 5 mg daily # insomnia/anxiety: Trazodone 50 mg at bedtime # essential hypertension: Amlodipine 5 mg daily # vitamin-D deficiency: On daily 2000 units of oral supplement # dyslipidemia: Atorvastatin 20 mg daily Follow up: Please follow up with the primary care physician within 1-2 weeks of discharge. Emergency plan in case patient becomes clinically more sick should visit nearby ED/ urgent care soon as possible. Risk and benefit was explained to the daughter/caregiver by the medical team prior to leaving the medical facility. Patient care and plan discussed with Dr. Cook Discharge discussion needed 37 minutes of detailed clinical work. Operations or Procedures [place] [id number] Ph: [phone] DIAGNOSTIC IMAGING Diagnostic Imaging Report : [id number] Signed PATIENT: CRISTAL GRIFFITHS ACCT: [id number] UNIT: [id number] : 1940 LOC: TELE ROOM / BED: [facility] / A AGE / SEX: 84 / F ADM STATUS: ADM IN SERVICE 0349 ORDERING PHYSICIAN: DANIELLE YUEN RESIDENT PROCEDURE(s): ABDL - ABDOMEN LIMITED REASON: Rule out pancreatitis ORDER NUMBER(s): [id number], ACCESSION NUMBER(s): [id number] INDICATION: Rule out pancreatitis TECHNIQUE: Multiple real-time sonographic images of the abdomen were obtained. COMPARISON: None FINDINGS: The liver is increased in echogenicity. The liver measures 15.6 cm. No intrahepatic biliary ductal dilatation is noted. The gallbladder is not visualized. Common bile duct not visualized. The right kidney measures 9.9 cm. No hydronephrosis. The pancreas is not well visualized due to obscuration from bowel gas. The visualized portions of the IVC and aorta are grossly unremarkable. IMPRESSION: 1. Hepatic steatosis. 2. Gallbladder not visualized and may be surgically absent. ATED BY: LAUREN ELDRIDGE MD DICTATED DATE/TIME: 07/06/24757 SIGNED BY: LAUREN ELDRIDGE MD SIGNED DATE/TIME: 07/06/24757 CC: [place] [id number] Ph: [phone] DIAGNOSTIC IMAGING Diagnostic Imaging Report : [id number] Signed PATIENT: CRISTAL GRIFFITHS ACCT: [id number] UNIT: [id number] : 1940 LOC: ER ROOM / BED: / AGE / SEX: 84 / F ADM STATUS: REG ER SERVICE 1357 ORDERING PHYSICIAN: MARCIA OLIVA PAC PROCEDURE(s): HWOCT - HEAD WITHOUT CONTRAST REASON: ALOC ORDER NUMBER(s): [id number], ACCESSION NUMBER(s): [id number] CLINICAL HISTORY: ALOC TECHNIQUE: Helical imaging carried out from skull base to vertex without intravenous contrast. This exam was performed according to our departmental dose optimization program. Up-to-date CT equipment and radiation dose reduction techniques are utilized as appropriate. COMPARISON: CT HEAD WITHOUT CONTRAST on DOS: 02/23/24 FINDINGS: Generalized cerebral volume loss with concordant prominence of the subarachnoid spaces and ventricles. There is minor patchy low-attenuation in the cerebral white matter consistent with nonspecific white matter disease. There is no midline shift or mass effect. The gonzalez white matter interfaces are maintained. The basal cisterns are patent. There is no evidence of acute intracranial hemorrhage or extra-axial fluid collection. Mastoid air cells are well-aerated. There are fluid levels in the bilateral maxillary and sphenoid sinuses and mild paranasal sinus mucosal thickening. IMPRESSION: 1. No acute intracranial abnormality. 2. Generalized cerebral volume loss and minor chronic microvascular ischemic change 3. Fluid levels in the bilateral maxillary and sphenoid sinuses which could reflect sinusitis in the appropriate clinical setting. Additional mild paranasal sinus mucosal thickening likely inflammatory. ATED BY: ASHU BURCH MD DICTATED DATE/TIME: 07/06/2453 SIGNED BY: ASHU BURCH MD SIGNED DATE/TIME: 07/06/2453 CC: [place] [id number] Ph: [phone] DIAGNOSTIC IMAGING Diagnostic Imaging Report : [id number] Signed PATIENT: CRISTAL GRIFFITHS ACCT: [id number] UNIT: [id number] : 1940 LOC: ER ROOM / BED: / AGE / SEX: 84 / F ADM STATUS: REG ER SERVICE 56 ORDERING PHYSICIAN: MARCIA OLIVA PAC PROCEDURE(s): CXRP - CHEST PORTABLE REASON: Shortness a breath ORDER NUMBER(s): [id number], ACCESSION NUMBER(s): [id number] EXAM: XY CHEST PORTABLE CLINICAL HISTORY: Shortness a breath TECHNIQUE: Single AP view of the chest WID: COMPARISON: None FINDINGS: Lines and tubes: None Chest: The heart size and pulmonary vasculature is within normal limits. Calcified plaque projects over the aortic arch. No pleural effusion, pneumothorax, or consolidation. The osseous structures are grossly intact. IMPRESSION: No acute cardiopulmonary abnormality. ATED BY: ASHU BURCH MD DICTATED DATE/TIME: 07/06/2454 SIGNED BY: ASHU BURCH MD SIGNED DATE/TIME: 07/06/2454 CC: EKG Name: CRISTAL GRIFFITHS Acct: [id number] [place] [address] ELECTROCARDIOGRAM REPORT PATIENT: CRISTAL GRIFFITHS ACCT: [id number] : 1940 LOC: [facility] ROOM / BED: [address] [place] [address] AGE / SEX: 84 / F ADM STATUS: ADM IN SERVICE 56 UNIT: [id number] ORDERING PHYSICIAN: MARCIA OLIVA PAC PROCEDURE(s): EKG - ELECTROCARDIGRAM ORDER NUMBER(s): [id number], ACCESSION NUMBER(s): [id number] [facility] Test Date: 2024-07-05 Test Time: 23:14:58 Pat Name: CRISTAL REVELES Department: ED Room: [address] [place] [address] Gender: F Belt Puncher: ARMEN : 1940 Requested By: MARCIA OLIVA Order Number: [id number] Reading MD: Filippo Marquez Measurements Intervals [place] Rate: 72 P: 18 KS: 137 QRS: 38 QRSD: 91 T: 37 QT: 393 QTc: 431 Interpretive Statements Sinus rhythm Anteroseptal infarct, old Electronically Signed On 07-06-2024 14:49:39 PST by Filippo Marquez Please click the below link to view image of tracing. DICTATED BY:FILIPPO MARQUEZ Sr., MD DICTATED DATE/TIME:07/05/244 ELECTRONICALLY SIGNED BY:FILIPPO MARQUEZ Sr., MD 07/06/24 1449 ELECTRONICALLY CO-SIGNED BY: Condition at Discharge: Undetermined Final Diagnosis/Problems List # Near syncopal episode likely due to autonomic instability # Hyperglycemia with normal anion gap, ruled out DKA # Pseudohyponatremia due to hyperglycemia # Hypokalemia, persistent # Elevated lipase with transaminitis # possibility of pancreatitis yet not ruled out # influenza type A positive # Known type 2 diabetes mellitus # known dementia # insomnia/anxiety # essential hypertension # vitamin-D deficiency # dyslipidemia Discharge Disposition: AMA Discharge Instruct/Medications Diet: Consistent carbohydrate Activity: No Restrictions, As Tolerated Follow Up/Referral: PCP, other specialist as needed Medications: Continue home medication Other medications as suggestions as per MAR But patient left AMA with daughter Discharge Statement: "Patient was advised to return to the ER or call 911 if any headaches, dizziness, shortness of breath, chest pain, abdominal pain, bleeding, fevers, or worsening of medical condition. Patient was counseled about treatment plan, medications, possible side effects, patientverbalized understanding. All questions were answered to the best of my ability. This discharge took greater then 30 minutes in planning, reviewing documentation, counseling the patient, and discussing with other team members." ASSESSMENT ASSESSMENT Assessment NADIR BURR RESIDENT Jul 06, 2024 19:10
[2024-07-06] MEDS ORDERED: OSELTAMIVIR 30 MG CAP PO SCH (22:00)
[2024-07-06] MEDS ORDERED: ATORVASTATIN 20 MG TAB PO SCH (22:00)
[2024-07-06] MEDS ORDERED: InsuLIN REG 1unit/0.01ml Soln (100units/ml) SC SCH (22:00)
[2024-07-08 11:13] LABS: Folate (Folic Acid) 30.68 ng/mL (>5.38)
== END 2024-07-06 08:10 | disposition left against medical advice (07) | DRG 73 ==
LOC: ER 22:35 → TELE 07-06 03:14
PROVIDERS: ADMIT Student in an Organized Health Care Education/Training Program; ATTEND Student in an Organized Health Care Education/Training Program
DX: G90.89 Other disorders of autonomic nervous system (principal); G93.41 Metabolic encephalopathy; K85.90 Acute pancreatitis without necrosis or infection, unspecified; F03.90 Unspecified dementia, unspecified severity, without behavioral disturbance, psychotic disturbance, mood disturbance, and anxiety; Z53.29 Procedure and treatment not carried out because of patient's decision for other reasons; I10 Essential (primary) hypertension; E11.65 Type 2 diabetes mellitus with hyperglycemia; E87.6 Hypokalemia; R74.01 Elevation of levels of liver transaminase levels; I95.9 Hypotension, unspecified; E78.5 Hyperlipidemia, unspecified; G47.00 Insomnia, unspecified; F41.9 Anxiety disorder, unspecified; E55.9 Vitamin D deficiency, unspecified; Z79.4 Long term (current) use of insulin; Z79.899 Other long term (current) drug therapy; J10.1 Influenza due to other identified influenza virus with other respiratory manifestations
CPT/HCPCS: 36415; 70450; 71045; 76705; 80048; 80053; 81001; 82607; 82746; 82962; 83605; 83690; 83880; 84443; 84484; 85025; 85610; 85730; 87426; 87804; G0378; J1815